=== PATIENT | male | born 1965 | race Caucasian/White ===

== ENCOUNTER 2017-03-11 01:15 | Emergency (ER) | payer OTHER ==
[~2017-03-11] VITALS: Ht 165.1 cm; Wt 73.2 kg
[2017-03-11 01:29] VITALS: PULSE 84; RESP 16; TEMP 98.2; O2SAT 100
[2017-03-11] MEDS ORDERED: OMEP40CA2 PO (01:48)
--- NOTE | 2017-03-11 02:19 | PD ---
HPI Chief Complaint: Nosebleed Time Seen by Provider: 01:45 Travel History International Travel<30 days: No Contact w/Intl Traveler<30days: No Traveled to known affect area: No History of Present Illness HPI 51-year-old male complains of nosebleed. Patient status post sinus surgery about 3 weeks ago. Patient started having nosebleed for the past 4 days. Patient states that the nosebleed started as intermittent and become constant since this evening. Patient has been taking Advil as needed for headache however non-for the past 2 days. Patient has been taking dicloxacillin antibiotic after the sinus surgery. Patient stated he has mild intermittent headache. Patient denies any visual change. Patient denies any neck pain. Patient denies any chest pain or shortness of breath. PFSH Past Medical History Tetanus Vaccination: < 5 Years Influenza Vaccination: Yes Past Surgical History Other Surgery: Yes (sinuse surgery) Social History Alcohol Use: Yes (occ) Tobacco Use: No Allergies-Medications (Allergen,Severity, Reaction): Coded Allergies: No Known Allergies (Unverified , 03/11/17) Reported Meds & Prescriptions Reported Meds & Active Scripts Active Reported Omeprazole 40 Mg Cap 40 Mg PO DAILY Review of Systems General / Constitutional: No: Fever Eyes: No: Visual changes HENT: Positive: Nosebleed, No: Headaches Cardiovascular: No: Chest Pain or Discomfort Respiratory: No: Shortness of Breath Gastrointestinal: No: Abdominal Pain Genitourinary: No: Dysuria Musculoskeletal: No: Pain Skin: No Rash Neurologic: No: Weakness Psychiatric: No: Depression Endocrine: No: Polydipsia Hematologic/Lymphatic: No: Easy Bruising Physical Exam Narrative GENERAL: Well-nourished, well-developed patient. SKIN: Focused skin assessment warm/dry. HEAD: Normocephalic. EYES: No scleral icterus. No injection or drainage. NECK: Supple, trachea midline. No JVD or lymphadenopathy. CARDIOVASCULAR: Regular rate and rhythm without murmurs, gallops, or rubs. RESPIRATORY: Breath sounds equal bilaterally. No accessory muscle use. GASTROINTESTINAL: Abdomen soft, non-tender, nondistended. MUSCULOSKELETAL: No cyanosis, or edema. BACK: Nontender without obvious deformity. No CVA tenderness. Patient has small slowly oozing blood posterior aspect of the left side the nose into the back of the throat. Data Data Last Documented VS Vital Signs Date Time Temp Pulse Resp B/P Pulse Ox O2 Delivery O2 Flow Rate FiO2 03/11/17 01:29 98.2 84 16 100 MDM Medical Decision Making Medical Screen Exam Complete: Yes Emergency Medical Condition: Yes Differential Diagnosis Differential diagnosis including epistaxis. Narrative Course 51-year-old male with epistaxis. Status post sinus surgery 3 weeks ago. Several attempts to pass Rhino Rocket both anterior and anterior posterior devise through the left sided nose without success. There seems to be an obstruction beyond 4 cm deep into the left side of the nose. Lidocaine with epinephrine nasal spray applied to left sided nose. The bleeding seemed to stop completely. I spoke with Dr. Lucio. Patient will be seen in the office in the morning either by Dr. Diego for by him. Advised patient to use Afrin nasal spray, ice pack, pressure to the nose if rebleeds. Diagnosis Primary Impression: Epistaxis Additional Instructions: Afrin nasal spray, pressure, aspect as needed to stop the bleeding. Advised patient to follow with ENT in the morning. Disposition: 01 DISCHARGE HOME Condition: Stable Joe Hoskins MD Mar 11, 2017 02:19
== END 2017-03-11 02:27 | disposition home or self-care (01) ==
LOC: PHED 01:15
DX: R04.0 Epistaxis (principal)
CPT/HCPCS: 30901

== ENCOUNTER 2017-03-12 18:05 | Emergency (ER) | payer OTHER ==
[~2017-03-12] VITALS: Ht 165.1 cm; Wt 73.0 kg
[~2017-03-12 18:05] MED LIST: OMEP40CA2 PO
[2017-03-12 18:27] VITALS: BP 124/80; PULSE 99; RESP 16; TEMP 98.3; O2SAT 99
--- NOTE | 2017-03-12 18:57 | PD ---
HPI Chief Complaint: Nosebleed Time Seen by Provider: 18:53 Travel History International Travel<30 days: No Contact w/Intl Traveler<30days: No Traveled to known affect area: No History of Present Illness HPI This 51-year-old male is complaining of coughing up blood. 3 weeks ago he had sinus surgery with Dr. Diego. He had gone to ENT doctor because of vertigo. Apparently his left side sinuses were clocked. He had surgery done about 3 weeks ago with a trim the turbinates and cleaned his sinuses out. This past Friday he started having some mild bleeding. Friday and Friday he continued to have some bleeding Friday night he had heavier bleeding and was seen here. He the bleeding was stopped with lidocaine and adrenaline. Attempts to pack the nose without successful because of a possible obstruction. Friday he saw Dr. Lucio who cauterized turbinate on the left side. He continued to bleed and today he saw Dr. Diego put a packing on the left side of his nose. He says it to after hours after he saw Dr. Diego he started bleeding again. [facility] Past Medical History Medical History: Denies Significant Hx Hx Anticoagulant Therapy: No Diabetes: No Tetanus Vaccination: < 5 Years Influenza Vaccination: Yes Past Surgical History Other Surgery: Yes (Sinus surgery) Social History Alcohol Use: Yes (Occ.) Tobacco Use: No Substance Use: No Allergies-Medications (Allergen,Severity, Reaction): Coded Allergies: No Known Allergies (Unverified , 03/12/17) Reported Meds & Prescriptions Reported Meds & Active Scripts Active No Active Prescriptions or Reported Medications Physical Exam Narrative GENERAL: Well-developed male. He is coughing up blood SKIN: Focused skin assessment warm/dry. HEAD: Atraumatic. Normocephalic. EYES: Pupils equal and round. No scleral icterus. No injection or drainage. ENT: The left nostril was packed. There is blood seen in the posterior pharynx. He is coughing up blood NECK: Trachea midline. No JVD. CARDIOVASCULAR: Regular rate and rhythm. No murmur appreciated. RESPIRATORY: No accessory muscle use. Clear to auscultation. Breath sounds equal bilaterally. GASTROINTESTINAL: Abdomen soft, non-tender, nondistended. Hepatic and splenic margins not palpable. MUSCULOSKELETAL: No obvious deformities. No clubbing. No cyanosis. No edema. NEUROLOGICAL: Awake and alert. No obvious cranial nerve deficits. Motor grossly within normal limits. Normal speech. PSYCHIATRIC: Appropriate mood and affect; insight and judgment normal. Data Data Last Documented VS Vital Signs Date Time Temp Pulse Resp B/P Pulse Ox O2 Delivery O2 Flow Rate FiO2 03/12/17 18:27 98.3 99 16 124/80 99 Orders Oxymetazoline 0.05% Reji [place] (Afrin 0.0 (03/12/17 19:00) Complete Blood Count With Diff (03/12/17 18:57) Basic Metabolic Panel (Bmp) (03/12/17 18:57) Prothrombin Time / Inr (Pt) (03/12/17 18:57) Act Partial Throm Time (Ptt) (03/12/17 18:57) Sodium Chlor 0.9% 1000 Ml Inj (Ns 1000 M (03/12/17 19:00) Oxycodone-Acetamin 5-325 Mg (Percocet (03/12/17 19:45) Ondansetron Inj (Zofran Inj) (03/12/17 20:15) Labs Laboratory Tests Test 03/12/17 19:40 White Blood Count 9.6 TH/MM3 Red Blood Count 3.81 MIL/MM3 Hemoglobin 10.9 GM/DL Hematocrit 33.5 % Mean Corpuscular Volume 88.1 FL Mean Corpuscular Hemoglobin 28.6 PG Mean Corpuscular Hemoglobin 32.5 % Concent Red Cell Distribution Width 11.9 % Platelet Count 176 TH/MM3 Mean Platelet Volume 9.9 FL Neutrophils (%) (Auto) 75.6 % Lymphocytes (%) (Auto) 15.6 % Monocytes (%) (Auto) 7.5 % Eosinophils (%) (Auto) 0.7 % Basophils (%) (Auto) 0.6 % Neutrophils # (Auto) 7.2 TH/MM3 Lymphocytes # (Auto) 1.5 TH/MM3 Monocytes # (Auto) 0.7 TH/MM3 Eosinophils # (Auto) 0.1 TH/MM3 Basophils # (Auto) 0.1 TH/MM3 CBC Comment DIFF FINAL Differential Comment Prothrombin Time 11.3 SEC Prothromb Time International 1.0 RATIO Ratio Activated Partial 23.1 SEC Thromboplast Time Sodium Level 141 MEQ/L Potassium Level 3.7 MEQ/L Chloride Level 106 MEQ/L Carbon Dioxide Level 28.5 MEQ/L Anion Gap 7 MEQ/L Blood Urea Nitrogen 33 MG/DL Creatinine 0.86 MG/DL Estimat Glomerular Filtration 94 ML/MIN Rate Random Glucose 100 MG/DL Calcium Level 8.4 MG/DL MDM Medical Decision Making Medical Screen Exam Complete: Yes Emergency Medical Condition: Yes Medical Record Reviewed: Yes Differential Diagnosis Differential includes postoperative epistaxis Narrative Course Is discussed with Dr. Lucio who recommends a Merocel pack in the right nostril. This has been done. Initially after the pack has been some increase in the bleeding. I have spoken with Dr. Lucio again. He recommends transfer to the emergency department at [facility]. If the bleeding continues the patient may need interventional radiology. Patient is to be sent to the ER and the ER doctor there assessed the patient and speak with Dr. Lucio Scripts No Active Prescriptions or Reported Meds Ian Bhakta MD Mar 12, 2017 18:57
[2017-03-12] MEDS ORDERED: OXYMETAZOLINE HCL 0.05% 15 ML NASAL SPRAY NASAL ONE (19:00)
[2017-03-12] MEDS: SODIUM CHLOR 0.9% 1000 ML INJ 1,000 ML IV SCH (19:29)
[2017-03-12 19:30] VITALS: BP 149/86; PULSE 96; RESP 20; O2SAT 99
[2017-03-12] MEDS ORDERED: oxyCODONE/ACETAMINOPHEN 5 MG/325 MG TAB PO ONE (19:45)
[2017-03-12 19:55] LABS: AUTOMATED NEUTROPHIL # 7.2 TH/MM3 (1.8-7.7); BASOPHIL # 0.1 TH/MM3 (0-0.2); BASOPHIL % 0.6 % (0.0-2.0); EOSINOPHIL # 0.1 TH/MM3 (0-0.4); EOSINOPHIL % 0.7 % (0.0-4.0); HEMATOCRIT 33.5 % (39.0-51.0); HEMO FLAGS DIFF FINAL; LYMPH % 15.6 % (9.0-44.0); LYMPHOCYTE # 1.5 TH/MM3 (1.0-4.8); MEAN CELL VOLUME 88.1 FL (80.0-100.0); MEAN CORPUSCULAR HEMOGLOBIN 28.6 PG (27.0-34.0); MEAN CORPUSCULAR HGB CONC 32.5 % (32.0-36.0); MONO % 7.5 % (0.0-8.0); NEUT % 75.6 % (16.0-70.0); PLATELET COUNT 176 TH/MM3 (150-450); RED BLOOD COUNT 3.81 MIL/MM3 (4.50-5.90); RED CELL DISTRIBUTION WIDTH 11.9 % (11.6-17.2); WHITE BLOOD COUNT 9.6 TH/MM3 (4.0-11.0)
[2017-03-12 20:00] VITALS: BP 175/65; PULSE 92; RESP 20; O2SAT 97
[2017-03-12 20:05] LABS: POTASSIUM 3.7 MEQ/L (3.5-5.1)
[2017-03-12 20:08] LABS: BICARBONATE 28.5 MEQ/L (21.0-32.0)
[2017-03-12 20:11] LABS: APTT (PATIENT) 23.1 SEC (24.3-30.1); PROTHROMBIN TIME - PATIENT 11.3 SEC (9.8-11.6)
[2017-03-12] MEDS ORDERED: ONDANSETRON HCL 4 MG/2 ML VIAL IV PUSH ONE (20:15)
[2017-03-12 20:55] VITALS: BP 160/83
[2017-03-12] MEDS ORDERED: MORPHINE SULFATE 4 MG/ML INJ IV PUSH ONE (21:45)
[2017-03-12] MEDS ORDERED: MIDAZOLAM HCL 5 MG/5 ML VIAL ONE (23:17)
[2017-03-12] MEDS ORDERED: fentaNYL CITRATE 250 MCG/5 ML AMP ONE (23:17)
[2017-03-12] MEDS ORDERED: NITROGLYCERIN 1000 MCG/5 ML VIAL OTHER ONE (23:30)
[2017-03-12] MEDS ORDERED: IODIXANOL 320 MG/ML 50 ML VIAL (for RAD SPEC) I-ARTERIAL ONE (23:50)
[2017-03-12] MEDS ORDERED: GELATIN 12 MM/7 MM FOAM I-ARTERIAL ONE (23:50)
--- NOTE | 2017-03-13 00:15 | PD.RAD ---
Post Procedure Progress Note Pre Procedure Diagnosis: (1) Epistaxis Post Procedure Diagnosis: (1) Epistaxis Procedure Date: Mar 13, 2017 Supervising Radiologist: Fidel Tapia JR Proceduralist/Assist: Katrina Villatoro, RT(R)(), Ivon Pabon RT(R)() Anesthesia: Conscious Sedation Plan of Activity Patient to Unit: Other Patient Condition: Good See PACS Report for procedural detail/treatment Vascular-Arterial Procedure Procedure 1 Procedure Site: Cerebral Procedure(s): Angiogram, Embolization Access Access Site(s): Right Femoral Artery Findings: Spoke with Dr Lucio prior to the procedure. Patient has persistent epistaxis despite packing. Dr Lucio is confident the bleeding is coming from the left nasal cavity. No involvement from right. Successful embolization of the peripheral branches of the left maxillary artery. Plan Successful embolization. May consider removing nasal packing tomorrow if no signs of further bleeding. Jr. Willie,Fidel Alanis MD Mar 13, 2017 00:15
[2017-03-13] MEDS ORDERED: HYDROmorphone HCL 2 MG TAB PO PRN (00:30)
[2017-03-13] MEDS ORDERED: ONDANSETRON HCL 4 MG/2 ML VIAL IV PUSH ONE (01:00)
[2017-03-13] MEDS ORDERED: HYDROmorphone HCL PF 1 MG/ML VIAL IV PUSH ONE (01:00)
[2017-03-13 01:25] VITALS: BP 174/68; PULSE 94; RESP 16; O2SAT 96
[2017-03-13 02:30] VITALS: BP 166/76; PULSE 86; RESP 18; O2SAT 99
[2017-03-13 03:43] VITALS: BP 168/72; PULSE 89; RESP 20; O2SAT 98
[2017-03-13 05:18] VITALS: BP 160/70; PULSE 84; RESP 14; O2SAT 99
[2017-03-13 05:32] LABS: AUTOMATED NEUTROPHIL # 13.3 TH/MM3 (1.8-7.7); BASOPHIL % 0.1 % (0.0-2.0); HEMO FLAGS DIFF FINAL; LYMPH % 5.5 % (9.0-44.0); LYMPHOCYTE # 0.8 TH/MM3 (1.0-4.8); MEAN CELL VOLUME 87.5 FL (80.0-100.0); MEAN CORPUSCULAR HEMOGLOBIN 30.4 PG (27.0-34.0); MEAN CORPUSCULAR HGB CONC 34.7 % (32.0-36.0); MONO % 6.3 % (0.0-8.0); NEUT % 88.1 % (16.0-70.0); PLATELET COUNT 150 TH/MM3 (150-450); RED CELL DISTRIBUTION WIDTH 12.7 % (11.6-17.2); WHITE BLOOD COUNT 15.1 TH/MM3 (4.0-11.0)
[2017-03-13] MEDS ORDERED: ONDANSETRON HCL 4 MG/2 ML VIAL IV ONE (05:45)
[2017-03-13] MEDS ORDERED: ONDANSETRON ODT 4 MG TAB PO ONE (05:45)
--- NOTE | 2017-03-13 05:45 | PD ---
Data Data Last Documented VS Vital Signs Date Time Temp Pulse Resp B/P Pulse Ox O2 Delivery O2 Flow Rate FiO2 03/13/17 05:18 84 14 160/70 99 03/12/17 18:27 98.3 Orders Oxymetazoline 0.05% Reji [place] (Afrin 0.0 (03/12/17 19:00) Complete Blood Count With Diff (03/12/17 18:57) Basic Metabolic Panel (Bmp) (03/12/17 18:57) Prothrombin Time / Inr (Pt) (03/12/17 18:57) Act Partial Throm Time (Ptt) (03/12/17 18:57) Sodium Chlor 0.9% 1000 Ml Inj (Ns 1000 M (03/12/17 19:00) Oxycodone-Acetamin 5-325 Mg (Percocet (03/12/17 19:45) Ondansetron Inj (Zofran Inj) (03/12/17 20:15) Type And Screen (03/12/17 20:24) Morphine Inj (Morphine Inj) (03/12/17 21:45) Angiogram, Cerebral Wo Arch (03/12/17 ) Midazolam Inj (Versed Inj) (03/12/17 23:17) Fentanyl Inj (Fentanyl Inj) (03/12/17 23:17) Vital Signs (Adult) Q15MX4,Q30MX4,Q1HX4 (03/13/17 00:07) Neuro Checks . ORDERED (03/13/17 00:07) Notify Dr: Other (03/13/17 00:07) Notify Dr. Parameters (03/13/17 00:07) ^ Apply Pressure (03/13/17 00:07) ^ Dressings (03/13/17 00:07) Activity Bed Rest (03/13/17 00:07) Hydromorphone (Dilaudid) (03/13/17 00:30) Iodixanol 320 Inj (Rad Spec) (Visipaque (03/12/17 23:50) Gelatin 12 Mm/7 Mm Top (Gelfoam 12 Mm/7 (03/12/17 23:50) Us Guided Vascular Access (03/12/17 ) F/U Thru Existing Cath (03/12/17 ) Transcath Iv Occlusion (03/12/17 ) Angiogram, Select + Vessel (03/12/17 ) Hydromorphone Pf Inj (Dilaudid Pf Inj) (03/13/17 01:00) Ondansetron Inj (Zofran Inj) (03/13/17 01:00) Complete Blood Count With Diff (03/13/17 05:01) Labs Laboratory Tests Test 03/12/17 03/12/17 03/13/17 19:40 20:25 05:11 White Blood Count 9.6 TH/MM3 15.1 TH/MM3 Red Blood Count 3.81 MIL/MM3 3.20 MIL/MM3 Hemoglobin 10.9 GM/DL 9.7 GM/DL Hematocrit 33.5 % 28.0 % Mean Corpuscular Volume 88.1 FL 87.5 FL Mean Corpuscular Hemoglobin 28.6 PG 30.4 PG Mean Corpuscular Hemoglobin 32.5 % 34.7 % Concent Red Cell Distribution Width 11.9 % 12.7 % Platelet Count 176 TH/MM3 150 TH/MM3 Mean Platelet Volume 9.9 FL 10.4 FL Neutrophils (%) (Auto) 75.6 % 88.1 % Lymphocytes (%) (Auto) 15.6 % 5.5 % Monocytes (%) (Auto) 7.5 % 6.3 % Eosinophils (%) (Auto) 0.7 % 0.0 % Basophils (%) (Auto) 0.6 % 0.1 % Neutrophils # (Auto) 7.2 TH/MM3 13.3 TH/MM3 Lymphocytes # (Auto) 1.5 TH/MM3 0.8 TH/MM3 Monocytes # (Auto) 0.7 TH/MM3 1.0 TH/MM3 Eosinophils # (Auto) 0.1 TH/MM3 0.0 TH/MM3 Basophils # (Auto) 0.1 TH/MM3 0.0 TH/MM3 CBC Comment DIFF FINAL DIFF FINAL Differential Comment Prothrombin Time 11.3 SEC Prothromb Time International 1.0 RATIO Ratio Activated Partial 23.1 SEC Thromboplast Time Sodium Level 141 MEQ/L Potassium Level 3.7 MEQ/L Chloride Level 106 MEQ/L Carbon Dioxide Level 28.5 MEQ/L Anion Gap 7 MEQ/L Blood Urea Nitrogen 33 MG/DL Creatinine 0.86 MG/DL Estimat Glomerular Filtration 94 ML/MIN Rate Random Glucose 100 MG/DL Calcium Level 8.4 MG/DL Blood Type O POSITIVE Antibody Screen NEGATIVE Blood Bank Comment [facility] Supervised Visit with RYAN: Yes Narrative Course So 51-year-old man of recent surgery with Dr. Diego with ENT was seen in the ER previously. He's had cauterization son with Dr. Diego and with Dr. Lucio. Despite this he continued bleeding. He went to [place] today. His left nares was packed earlier. He went to [place] ongoing bleeding. Impacted right near. He continued to have ongoing bleeding anyway. He was sent to the [facility] here for IR consultation. I spoke with Dr. Tapia, with interventional radiology. He called and spoke directly with Dr. Lucio. Patient was taken for embolization with good effect. Patient was hard to be kept flat because he had his femoral access site. He was monitored for several hours post procedure. Patient did well. He did have some vomiting of bloody emesis but no recurrence of his bleeding. I spoke with Dr. Lucio after procedure a did agree a dialysis pulled the right packing. It was very bothersome to the patient. The left packing remained in. Patient will follow-up with Dr. Diego this morning. Diagnosis Primary Impression: Epistaxis Referrals: Dominic Diego MD 1 day Additional Instruction: Follow-up with Dr. Diego first thing this morning and the [place] office repeat evaluation and to see if they can pull the left packing. Return to the emergency department for any new or worsening symptoms. Med/Other Pt SpecificInfo: No Change to Meds Scripts No Active Prescriptions or Reported Meds Disposition: 01 DISCHARGE HOME Condition: Stable Rodríguez Quiroz MD Mar 13, 2017 05:45
[2017-03-13] MEDS: SODIUM CHLOR 0.9% 1000 ML INJ 1,000 ML IV SCH (06:09)
[2017-03-13 06:14] VITALS: BP 162/68; PULSE 92; RESP 16; O2SAT 98
[2017-03-13] MEDS ORDERED: HYDR-3533 PO (06:42)
--- NOTE | 2017-03-13 10:19 | RADRPT ---
EXAM DATE/TIME: 03/12/2017 22:55 [place] COMPARISON: No previous studies available for comparison. INDICATIONS : Patient has undergone prior left-sided turbinectomy approximately 3 weeks ago. Patient has recurrent repeated episodes of epistaxis despite nasal packing. Dr. Lucio is confident that the bleeding is c oming from the left nasal cavity. Angiography with embolization is requested. MEDICAL HISTORY : None SURGICAL HISTORY : Sinus surgery ENCOUNTER: Initial ACUITY: 4-6 days PAIN SCORE: 0/10 FLUORO TIME: 9.9 minutes IMAGE SERIES: 15 ACCESS SITE: Right Femoral artery SEDATION TIME: 45 minutes CONTRAST: 80 cc Visipaque (iodixanol) MEDICATION(S): 1.) 2.5 mg midazolam (Versed) IV 2.) 125 mcg fentanyl (Sublimaze) IV 3.) 200 mcg Nitroglycerin IART DEVICE(S): 1.) Left internal maxillary artery Gelfoam 2.) Right common femoral artery Syvek patch PROCEDURE : 1. Ultrasound-guided puncture of the access site. 2. Conscious sedation with continuous EKG and Oximetry monitoring. 3. Angiography of the left common carotid artery 4. Angiography of the left external carotid artery 5. Angiography of the <left maxillary artery>> 6. Gelfoam embolization of terminal branches of the left maxillary artery The risks, benefits and alternatives to the procedure were explained and verbal and written consent w as obtained. These risks included, that were not limited to, those of stroke as well as tissue loss. The site was prepped in sterile fashion. Full sterile technique was used, including cap, mask, steri le gloves and gown and a large sterile sheet. Hand hygiene and 2% chlorhexidine and/or betadine/alco hol prep was utilized per protocol for cutaneous antisepsis. The skin and subcutaneous tissues were infiltrated with local anesthetic solution. With ultrasound and fluoroscopic guidance the right common femoral artery was punctured and a vascula r sheath was placed <The left common carotid artery was accessed and a extracranial and intracranial angiogram performed highlighting a patent carotid system. The left external carotid artery was then selected and angiogra phy performed from this level. These images show no source of acute hemorrhage. There is hyperemia in volving the nasal cavity. I was able to gain access to the third portion of the maxillary artery. Per ipheral to this there is significant tortuosity limiting the passage of any catheter. Safe embolizati on could be performed from this level. Gelfoam embolization was performed under direct fluoroscopic g uidance. Approximately 3 ML of Gelfoam slurry was utilized. A dwell time of 5 minutes was allowed. A followup angiogram showed successful embolization of the targeted vessels. The contralateral side was not imaged as was confident the source of the hemorrhage was from the left side only.> The puncture site was closed with manual pressure and hemostasis was obtained. The patient tolerated the procedure well and there were no complications. Conscious sedation was performed with the prescribed dosages and duration as above in the presence of an independent trained radiology nurse to assist in the monitoring of the patient. EKG and oximetry remained stable throughout the procedure. CONCLUSION: Selective angiography shows no active source of hemorrhage. Successful empiric embolization of the te rtiary branches of the left maxillary artery as detailed above. Fidel Tapia Jr., MD on March 13, 2017 at 9:23 Board Certified Radiologist. This report was verified electronically.
== END 2017-03-13 06:30 | disposition home or self-care (01) ==
LOC: PHED 18:05 → NEPC 03-13 06:30
DX: R04.0 Epistaxis (principal); K92.0 Hematemesis
CPT/HCPCS: 30901; 36223; 36227; 36228; 61626; 75894; 76937; 80048; 85025; 85610; 85730; 86850; 86900; 86901; 96361; 96374; 96375; 99152; 99153; 99285; C1769; C1887; C1894; J1170; J2250; J2405; J3010; J7030; Q9967